=== PATIENT | male | born 1995 | race Hispanic/Latino ===

== ENCOUNTER 2018-03-04 18:07 | Emergency (ER) | payer MEDICAID, SELFPAY ==
[2018-03-04 18:49] LABS: #Basophils 0.1 thou/uL (0.0-0.2); #Eosinphils 0.3 thou/uL (0.0-0.7); #Lymphocytes 1.9 thou/uL (1.20-3.40); #Monocytes 1.2 thou/uL (0.11-0.59); #Neutrophils 11.6 thou/uL (1.40-6.50); %Basophils 0.5 % (0.0-1.0); %Eosinophils 1.8 % (0.0-10.0); %Lymphocytes 12.4 % (28.0-48.0); %Neutrophils 77.3 % (31.0-61.0); Hemoglobin 15.4 g/dL (14.0-18.0); Mean Corpuscular HGB CONC 34.7 g/dL (32.0-36.0); Mean Corpuscular Hemoglobin 30.7 pg (25.0-35.0); Mean Corpuscular Volume 88.3 fl (77.0-87.0); Mean Platelet Volume 9.4 fL (7.4-10.4); Platelet Count 163 thou/uL (130-400); Red Blood Cell (RBC) Count 5.01 mill/uL (4.00-5.20); White Blood Cell (WBC) Count 15.1 thou/uL (4.8-10.8)
[2018-03-04 19:04] LABS: ALT (SGPT) 22 U/L (8-55); AST (SGOT) 13 U/L (5-34); Albumin 4.6 g/dL (3.5-5.0); Alkaline Phosphatase 76 U/L (Less than 750); Anion Gap 14 mmol/L (10-20); BUN (Urea Nitrogen) 9 mg/dL (8.9-20.6); Calc. Creatinine Clearance 0 mL/min (70-130); Calcium 9.4 mg/dL (7.8-10.44); Carbon Dioxide 26 mmol/L (22-29); Chloride 100 mmol/L (98-107); Estimated GFR-MDRD Greater than 90; Globulin 3.2 g/dL (2.4-3.5); Glucose 97 mg/dL (70-105); Potassium 3.6 mmol/L (3.5-5.1); Protein, Total 7.8 g/dL (6.0-8.3); Sodium 136 mmol/L (136-145)
--- NOTE | 2018-03-04 19:56 | RAD ---
RIGHT FOOT THREE VIEWS: 03/04/2018 HISTORY: Right foot pain after injury on Monday at work. The foot is red, swollen, and warm to touch. Purul ent material draining between toe. FINDINGS: There is no evidence of a fracture, dislocation, or other osseous abnormality involving the right jeovanny t. IMPRESSION: No acute osseous abnormality right foot. POS: [facility]
[2018-03-04] MEDS ORDERED: Ketorolac Tromethamine 30 MG/ML VIAL ONE (20:07)
[2018-03-04] MEDS ORDERED: Ketoconazole 2% Cream 15 gm Tube TOP SCH (20:30)
== END 2018-03-04 21:25 | disposition home or self-care (01) ==
LOC: ERS 18:07
DX: B35.3 Tinea pedis (principal); L03.115 Cellulitis of right lower limb; F17.210 Nicotine dependence, cigarettes, uncomplicated
CPT/HCPCS: 36415; 80053; 83605; 85025; 87040; 87070; 87077; 87186; 87205; 96360; 96361; 96374; 96375; J0696; J1885

== ENCOUNTER 2018-06-18 00:42 | Inpatient (IN) | payer SELFPAY, OTHER ==
[2018-06-18 01:04] LABS: #Eosinphils 0.1 thou/uL (0.0-0.7); #Lymphocytes 1.2 thou/uL (1.20-3.40); #Monocytes 0.5 thou/uL (0.11-0.59); #Neutrophils 13.6 thou/uL (1.40-6.50); %Basophils 0.1 % (0.0-1.0); %Eosinophils 0.4 % (0.0-10.0); %Monocytes 3.3 % (0.0-4.0); %Neutrophils 88.2 % (31.0-61.0); Hemoglobin 16.7 g/dL (14.0-18.0); Mean Corpuscular HGB CONC 33.8 g/dL (32.0-36.0); Mean Corpuscular Hemoglobin 30.5 pg (25.0-35.0); Mean Corpuscular Volume 90.2 fL (78.0-98.0); Mean Platelet Volume 9.9 fL (7.4-10.4); Platelet Count 204 thou/uL (130-400); RBC Distribution Width 13.6 % (11.5-14.5); Red Blood Cell (RBC) Count 5.49 mill/uL (4.00-5.20); White Blood Cell (WBC) Count 15.4 thou/uL (4.8-10.8)
[2018-06-18 01:05] LABS: Bilirubin Negative (Negative); Blood, Urine Negative (Negative); Clarity CLEAR (Clear); Glucose, Urine (Dipstick) Negative (Negative); Leukocyte Negative (Negative); Nitrite Negative (Negative); Protein, Urine (Dipstick) Trace mg/dL (Neg-Trace); Specific Gravity, Urine 1.014 (1.002-1.036); Urobilinogen 0.2 mg/dL (0.2-1.0); pH, Urine 5.5 (5.0-9.0)
[2018-06-18] MEDS ORDERED: fentaNYL Citrate/PF 2,000 MCG in Sodium Chloride 0.9% 60 ML IV SCH ×2 (01:06→04:45)
[2018-06-18 01:18] LABS: ALT (SGPT) 28 U/L (8-55); AST (SGOT) 19 U/L (5-34); Acetaminophen Less than 6.0 mcg/mL (10.0-30.0); Albumin 4.8 g/dL (3.5-5.0); Alkaline Phosphatase 75 U/L (Less than 750); Anion Gap 20 mmol/L (10-20); BUN (Urea Nitrogen) 7 mg/dL (8.9-20.6); Bilirubin, Total 0.4 mg/dL (0.2-1.2); Calc. Creatinine Clearance 0 mL/min (70-130); Calcium 8.5 mg/dL (7.8-10.44); Carbon Dioxide 21 mmol/L (22-29); Chloride 100 mmol/L (98-107); Estimated GFR-MDRD Greater than 90; Globulin 3.3 g/dL (2.4-3.5); Glucose 182 mg/dL (70-105); Potassium 3.4 mmol/L (3.5-5.1); Protein, Total 8.1 g/dL (6.0-8.3); Salicylate Less than 8.0 mg/dL (15.0-30.0); Sodium 138 mmol/L (136-145)
[2018-06-18 01:23] LABS: CO2 Tension 52.7 mmHg (35.0-45.0); O2 Tension (PaO2) 99.4 mmHg (80.0-100.0); pH, Arterial 7.29 (7.35-7.45)
[2018-06-18 01:24] LABS: Analyzer IN Cardio ER; Base Excess (BEa) -2.3 mEq/L (-2.0 to +3.0); Hematocrit-ABG 47.7 % (34.0-44.0); Hemoglobin (Hb) 15.4 g/dL (11.4-15.4); Puncture Site LRA
[2018-06-18 01:25] LABS: ALV-art Gradient 117.925 (0-20)
[2018-06-18 01:26] LABS: Amphetamine Detected (NotDetected); Barbiturates Screen Not Detected (NotDetected); Benzodiazepine Screen Not Detected (NotDetected); Cocaine Metabolite Screen Detected (NotDetected); Medtox Control Line Valid? VALID (VALID); Medtox Reader # READER 4; Methadone Not Detected (NotDetected); Methamphetamine Not Detected (NotDetected); Opiate Screen Not Detected (NotDetected); Oxycodone Screen Not Detected (NotDetected); Phencyclidine (PCP) Not Detected (NotDetected); THC/Cannabinoid Screen Not Detected (NotDetected); Tricyclic Screen Not Detected (NotDetected)
[2018-06-18 01:29] LABS: Alcohol 460 mg/dL (Less than 10)
[2018-06-18] MEDS ORDERED: Pantoprazole 40 MG VIAL ONE (02:25)
[2018-06-18] MEDS ORDERED: Sodium Chloride 0.9% 1,000 ML IV SCH ×2 (02:57→23:45)
[2018-06-18] MEDS ORDERED: Ondansetron HCl/PF 4 MG/2 ML Vial IVP PRN (03:01)
[2018-06-18] MEDS ORDERED: Propofol 1,000 MG/100 ML VIAL IV ONE (03:27)
[2018-06-18 03:38] LABS: Hemoglobin 13.6 g/dL (14.0-18.0); Mean Corpuscular HGB CONC 34.1 g/dL (32.0-36.0); Mean Corpuscular Hemoglobin 30.7 pg (25.0-35.0); Mean Corpuscular Volume 89.8 fL (78.0-98.0); Mean Platelet Volume 9.6 fL (7.4-10.4); Platelet Count 163 thou/uL (130-400); RBC Distribution Width 13.4 % (11.5-14.5); Red Blood Cell (RBC) Count 4.44 mill/uL (4.00-5.20); White Blood Cell (WBC) Count 20.9 thou/uL (4.8-10.8)
[2018-06-18 03:44] VITALS: BMI 37.0
[2018-06-18 03:45] LABS: Anion Gap 16 mmol/L (10-20); BUN (Urea Nitrogen) 5 mg/dL (8.9-20.6); Calc. Creatinine Clearance 288 mL/min (70-130); Calcium 6.5 mg/dL (7.8-10.44); Carbon Dioxide 18 mmol/L (22-29); Chloride 111 mmol/L (98-107); Estimated GFR-MDRD Greater than 90; Glucose 137 mg/dL (70-105); Potassium 3.5 mmol/L (3.5-5.1); Sodium 141 mmol/L (136-145)
[2018-06-18 03:56] LABS: Band 23 % (5-11); Lymphocytes 9 % (28-48); MDiff Complete? YES; Monocytes 5 % (0-4); Neutrophil 63 % (31-61)
[2018-06-18] MEDS: Piperacillin/Tazobactam 3.375 GM in Sodium Chloride 0.9% 100 ML IVPB SCH ×4 (04:31→22:15)
[2018-06-18] MEDS ORDERED: Propofol BOLUS 1,000 MG/100 ML VIAL IV PRN (04:45)
[2018-06-18] MEDS ORDERED: Fentanyl BOLUS 250 ML IVPB PRN (04:45)
[2018-06-18] MEDS: Lorazepam 2 MG/ML VIAL SLOW IVP PRN ×3 (07:00→14:07)
--- NOTE | 2018-06-18 07:19 | PDOC.PULCN ---
Pulmonology Consult: HPI - Date of Consult Date: 06/18/18 Time: 07:00 - Consult Details Reason for Consult: Severe Alcohol in toxication, intubated Requesting Physician: angelique - History of Present Illness HPI: KHURRAM MONTOYA is a 22 year-old M who was dropped in the ER unconscious by some friends. Per chart review, they stated that he had been drinking heavily and lost consciousness and they became concerned. Per chart review he has no significant medical history and takes no medications at home. On presentation to the ED patient had a GCS of 3 and was intubated. Upon transport to the unit the patient was very aggravated and required 5 nurses to hold him down to keep him from pulling his ET tube. Now sedated with ET tube in place. Pulmonology Consult: ROS - Review of Systems ROS unobtainable: due to mental status Pulmonology Consult: PMH Source: other (chart) Past Medical History: none per chart - Social History Smoking Status: Unknown if ever smoked Alcohol Use: heavy Drug Use History: cocaine, amphetamines Pulmonology Consult: Meds - Medications MAR Reviewed: Yes Medications: Current Medications Enoxaparin Sodium (Lovenox) 40 mg SC 0900 ALONDRA Piperacillin Sod/Tazobactam (Sod 3.375 gm/ Sodium Chloride) 100 mls @ 200 mls/ hr IVPB 0400,1000,1600,2200 ALONDRA Last Admin: 06/18/18 04:31 Dose: 100 mls Fentanyl Citrate 2,000 mcg/ (Sodium Chloride) 100 mls @ 0 mls/hr IV INF ALONDRA; Per Protocol PRN Reason: Protocol Stop: 07/18/18 04:45 Fentanyl Citrate (Fentanyl Bolus) 250 mls @ 0 mls/hr IVPB PRN PRN; As Directed PRN Reason: Breakthrough pain/agitation Stop: 07/18/18 04:45 Sodium Chloride (Normal Saline 0.9%) 1,000 mls @ 125 mls/hr IV .Q8H ALONDRA Lorazepam (Ativan) 2 mg SLOW IVP Q1H PRN PRN Reason: Breakthrough agitation Stop: 07/18/18 04:45 Morphine Sulfate (Morphine Sulfate) 2 mg SLOW IVP Q1H PRN PRN Reason: BREAKTHROUGH PAIN/AGITATION Stop: 07/18/18 04:45 Ondansetron HCl (Zofran) 4 mg IVP Q6H PRN PRN Reason: Nausea/Vomiting Propofol (Diprivan) 1,000 mg IV INF PRN; Protocol PRN Reason: TO ACHIEVE GOAL RASS Stop: 07/18/18 04:45 Propofol (Diprivan Bolus) 20 mg IV Q5MIN PRN PRN Reason: BREAKTHROUGH AGITATION Stop: 07/18/18 04:45 - Allergies Allergies/Adverse Reactions: Allergies Allergy/AdvReac Type Severity Reaction Status Date / Time No Known Allergies Allergy Verified 06/18/18 03:51 Pulmonology Consult: PE - Physical Exam Constitutional: NAD HEENT: moist MMs Cardiovascular: RRR, no significant murmur Respiratory: clear to auscultation anteriorly. negative: respiratory distress Gastrointestinal: soft, non-tender, no distention, positive bowel sounds Musculoskeletal: no edema, pulses present Skin: cap refill <2 seconds Pulmonology Consult: Results - Labs Result Diagrams: 06/18/18 03:13 06/18/18 03:13 - ABG Interpretation Attestation: I reviewed and interpreted this ABG. ABG Results: ABG pH 7.29 (7.35-7.45) L 06/18/18 01:13 ABG pCO2 52.7 mmHg (35.0-45.0) H 06/18/18 01:13 ABG O2 Sat Calc/Elizabeth 97.0 % (94.0-98.0) 06/18/18 01:13 ABG Base Excess -2.3 mEq/L (-2.0 to +3.0) L 06/18/18 01:13 Interpretation: metabolic acidosis Pulmonology Consult: A/P - Problem (1) Alcohol intoxication Current Visit: Yes Status: Acute (2) Polysubstance abuse Current Visit: Yes Code(s): F19.10 - OTHER PSYCHOACTIVE SUBSTANCE ABUSE, UNCOMPLICATED Status: Acute (3) Acute respiratory failure with hypoxia and hypercarbia Current Visit: Yes Code(s): J96.01 - ACUTE RESPIRATORY FAILURE WITH HYPOXIA; J96.02 - ACUTE RESPIRATORY FAILURE WITH HYPERCAPNIA Status: Acute (4) Metabolic acidosis Current Visit: Yes Code(s): E87.2 - ACIDOSIS Status: Acute - Time Time: 50% of the time was spent in coordination of care (as documented) at patient's floor/unit and/or counseling patient. Time with Patient: greater than 50 minutes - Plan Plan: This is a critically ill 22 yo M admitted for severe alcohol intoxication and substance abuse with inability to protect airway. This is a critically ill 54 yo male s/p valve replacement on 06/12 and pulmonary hematoma evacuation on 06/13. He developed shock liver after the procedures which is resolving. He is being treated for endocarditis after perforations at coronary cuff were discovered. He is off pacer and all chest tubes out since 06/16. Consults: pulm FOREIGN EXCHANGE CLERK (alcohol abuse) - ETOH level 460 at 0100 06/18, UDS + for cocaine, amphetamin es - difficult sedation - propofol 40 mcg/kg/min, s/p 100ml bolus - fentanyl in ED - Ativan 2mg x1 Resp (acute hypoxic resp failure) - extubated 06/15 - satting 95% on 2L this AM CV (valve replacement, endocarditis) - off pressors maintaining adequate BPs - unable to obtain EF from echo 06/13, prior 15-20% - all chest tubes out since 06/16 GI (shock liver) - AST 374, ALT 1262 from both >3500 after surgery Nutrition - advancing diet Hematologic (shock liver vs DIC, anemia, thrombocytopenia) - plt trough 40, now trending up, 48 today - total blood products this stay: PRBC 11, plt 4, 11 FFP, 2 cryoprecipate - hgb 8.8 /Renal (JASMINA, fluid overload) - +700ml fluid balance yesterday - Cr up, 1.71-> 2.84 -> 3.06 -> 2.43 -> 1.90 -> 1.43 - suspect intravascular volume depletion 2/2 shock liver vs DIC - monitor I/Os - -271 ml I/O yesterday, metolazone & spironolactone Infection (Endocarditis, GBS bacteremia) - Continue vanc/Rocephin for 2 weeks post valve replacement (06/12) - Likely will need Picc prior to d/c - BC negative x4, valve growing staph hominus suspected contaminant per ID Endo (T2DM) - SSI - restart metformin today as JASMINA resolving Tubes: ronak Code status: full PPx: heparin Diet: heart healthy Dispo: anticipate transfer to floor today, will need rehab placement
[2018-06-18 07:45] LABS: Actual Bicarbonate (HCO3a) 19.7 mEq/L (22-28); CO2 Tension 35.5 mmHg (35.0-45.0); Hemoglobin (Hb) 13.3 g/dL (11.4-15.4); O2 Tension (PaO2) 147.4 mmHg (80.0-100.0); pH, Arterial 7.36 (7.35-7.45)
[2018-06-18] MEDS: Sodium Chloride 0.9% 1,000 ML IV SCH ×2 (07:45→14:09)
[2018-06-18] MEDS ORDERED: CCU Electrolyte Replacement 1 EACH FS ONE (07:45)
[2018-06-18 07:46] LABS: ALV-art Gradient 93.425 (0-20); Puncture Site RBRACH
[2018-06-18] MEDS: Propofol 1,000 MG/100 ML VIAL IV PRN ×3 (07:46→14:08)
[2018-06-18] MEDS ORDERED: Potassium Phosphate 9 MMOL in Sodium Chloride 0.9% 100 ML IVPB PRN (08:00)
[2018-06-18] MEDS ORDERED: Potassium Phosphate 15 MMOL in Sodium Chloride 0.9% 250 ML 250 ML IV PRN (08:00)
[2018-06-18] MEDS ORDERED: Magnesium Oxide 400 MG TAB PO PRN ×2 (08:00)
[2018-06-18] MEDS ORDERED: Potassium Chloride 40 MEQ in Premix Bag 1 BAG IVPB PRN (08:00)
[2018-06-18] MEDS ORDERED: Potassium Chloride 40 MEQ in Sodium Chloride 0.9% 250 ML 250 ML IVPB PRN (08:00)
[2018-06-18] MEDS ORDERED: CCU ELECTROLYTE REPLACEMENT PROTOCOL FS PRN (08:00)
[2018-06-18] MEDS ORDERED: Potassium Phosphate 12 MMOL in Sodium Chloride 0.9% 250 ML 250 ML IV PRN (08:00)
[2018-06-18] MEDS ORDERED: Potassium Chloride 20 MEQ TAB PO PRN (08:00)
[2018-06-18] MEDS ORDERED: Magnesium 2 GM/NS 0.9% 100 ML 2 GM in Premix Bag 1 BAG IVPB PRN (08:00)
[2018-06-18] MEDS: Multivitamins, Adult 10 ML, Folic Acid 1 MG, Thiamine HCl 100 MG in Dextrose 5 %-0.45 %... IV SCH (08:17)
--- NOTE | 2018-06-18 08:28 | CT ---
CT HEAD NONCONTRAST: Comparison: None. Indication: Altered mental status. FINDINGS: Ventricular system is normal in size. There is a kiesha cisterna magna, normal anatomic variant. No acu te intracranial hemorrhage, mass effect, or midline shift. There is scattered paranasal sinus mucosal thickening as well as opacification of the imaged nasal passageway. IMPRESSION: No acute intracranial hemorrhage or mass effect. POS: [facility]
[2018-06-18] MEDS: Enoxaparin Sodium 40 MG/0.4 ML SYRINGE SC SCH (08:31)
[2018-06-18] MEDS: Pantoprazole 40 MG VIAL IVP SCH (08:31)
--- NOTE | 2018-06-18 08:39 | CON ---
DATE OF CONSULTATION: 06/18/2018 REASON FOR CONSULTATION: Critical care management. HISTORY OF PRESENT ILLNESS: This is a 22-year-old male, who presented intoxicated, abusive, and also high on drugs. The patient was intubated, I believe, more or less as a restraint measure and has be en left on mechanical ventilation. PAST MEDICAL HISTORY: Negative. PAST SURGICAL HISTORY: None. PSYCHIATRIC HISTORY: None. SOCIAL HISTORY: Drinks socially; smokes cigarettes daily, approximately 1-1/2 packs; was positive fo r amphetamines and cocaine as drug screen. ALLERGIES: None. MEDICATIONS: None. REVIEW OF SYSTEMS: Unobtainable, as the patient is on mechanical ventilation. PHYSICAL EXAMINATION: VITAL SIGNS: Temperature 98.1, pulse 100, blood pressure 105/50. A 24-hour intake, I's and O's are not completely measured yet. HEENT EXAM: Pupils 5 mm and reactive. Sclerae are anicteric. Oropharynx clear except for endotrach eal tube in place. Lips slightly swollen. NECK: No adenopathy, JVD, or bruits. LUNGS: Clear without wheezing or rhonchi. CARDIAC: S1 and S2, slightly tachycardic without murmur. ABDOMEN: Soft, nontender, nondistended. EXTREMITIES: No clubbing, cyanosis, or edema. GENITOURINARY EXAM: Normal. LABORATORY AND X-RAY FINDINGS: White blood cell count 20.9, hematocrit 39.9, platelet count 163, pH 7.29, pCO2 of 52, pO2 of 99. His original blood gas, when he came in , tidal volume 550, PEEP 5 , pressure support 10, FiO2 40%. Sodium 141, potassium 3.5, chloride 106, CO2 of 18, BUN 5, creatini ne 0.6, glucose 137, calcium 6.5. Urinalysis essentially negative. Drug screen positive for ampheta mines and cocaine. Alcohol level 460. Chest x-ray normal heart size, diaphragms clear. Endotrachea l tube, 3.5 cm above the maren. ASSESSMENT: 1. Alcohol and drug intoxication. 2. Acute respiratory failure, requiring mechanical ventilation. PLAN: We would trend his alcohol level, possibly extubate this afternoon. Monitor electrolytes. Re check blood gas. We would consider stopping antibiotics.
--- NOTE | 2018-06-18 09:07 | RAD ---
PORTABLE AP CHEST: Date: 06/18/18 HISTORY: Altered mental status, intoxicated, unresponsive. FINDINGS: Endotracheal tube is noted in place with tip overlying T2 vertebral body. Nasogastric tube is noted i n place, with tip overlying the body of the stomach, but the most proximal side hole overlies the reg ion of the GE junction and the nasogastric tube should be mildly advanced. Cardiac silhouette and bro nchovascular markings are accentuated by the shallow depth of inspiration and portable technique. Cherie gs are otherwise clear. IMPRESSION: 1. Nasogastric tube noted in place with most proximal side hole overlying the expected location of t he GE junction. Nasogastric tube should be mildly advanced. 2. Endotracheal tube in place. POS: [facility]
[2018-06-18] MEDS: Acetaminophen 500 MG TAB PO PRN ×2 (11:30→18:21)
--- NOTE | 2018-06-18 11:35 | HP ---
PRIMARY CARE PHYSICIAN: None. CODE STATUS: FULL CODE. TIME OF EVALUATION: 3:00 a.m. CHIEF COMPLAINT: Found unresponsive. HISTORY OF PRESENT ILLNESS: Information was gathered from family and ER staff, last time the patient was in normal was yesterday in a alliance party with friends. As per the family member, it looks like the deidre mercado was having some alcohol in the alliance party. The family said that they went to pick him up and then b rought him into the hospital. The patient was unresponsive, no waking up, likely triggers due to alc ohol intoxication, no alleviating factors. The symptoms are severe, patient was intubated, he was go tten some large amount of liquid from the NG tube, patient was also positive for cocaine, methampheta mines and alcohol. Initially was hypothermic, here temperature has improved from the new warming micheline nket, blood pressures remain on the low side, we given aggressive hydration. REVIEW OF SYSTEMS: Unable to obtain. The patient is sedated and intubated. PAST SURGICAL HISTORY: No surgical history. PSYCHIATRIC HISTORY: No psych history. SOCIAL HISTORY: The patient drinks socially. As per family member, no history of drug use or cigare ttes. KNOWN ALLERGIES: No known drug allergies. PHYSICAL EXAMINATION: VITAL SIGNS: Blood pressure 136/81 with heart rate 117, respiratory rate was 10, temperature 96.3. The patient has received resuscitation. Blood pressure has remained on the low side. GENERAL APPEARANCE: The patient is intubated. HEENT: Eyes: Normal conjunctiva. Moist oral mucosa. Anicteric. NECK: No JVD. RESPIRATORY: Bilateral air entry. No rales, no wheezing. Symmetric expansion. CARDIOVASCULAR: Normal rate, regular rhythm. No murmurs, no gallop, no edema. ABDOMEN: Soft, normal bowel sounds. MUSCULOSKELETAL: Baseline range of motion and strength. No tenderness. SKIN: Warm and intact. No pallor, no rash, no redness. NEUROLOGIC: Unable to explore, patient is intoxicated and intubated. PSYCHIATRIC: Unable to explore. LABORATORY DATA: EKG was done. The patient has sinus tachycardia with a ventricular rate of 116, [place] 174, QRS 102, QT corrected 458. Chest x-ray, head CT was negative for acute changes. Chest: ET tu be in good position . OG tube in place. LABORATORY DATA: Reviewed. The patient has white count of 15, hemoglobin 16. Blood gas showed a pH of 7.29 with a pCO2 of 52 and pO2 of 99 that was done on SIMV at the rate of 14, inspired oxygen 40, tidal volume 550, pressure support of 10, PEEP of 5. Chemistry: Sodium 138, potassium 3.4, chlorid e 100, carbon dioxide 21, anion gap 20, BUN 7, creatinine 0.8, glucose 182. LFTs were negative. Uri ne was negative. Plasma alcohol 460, cocaine was detected, amphetamine was detected. Acetaminophen was negative. Salicylates were negative was negative. ASSESSMENT AND PLAN: The patient will be placed in the hospital with the following medical problems. Critical care time, more than 35 minutes spent at bedside assessment, family meeting, record review a nd elaboration and coordination of care. 1. Acute hypercapnic respiratory failure with respiratory acidosis that is acute, the patient was in tubated, we will continue on the vent overnight, we will monitor. We will adjust treatment as needed . 2. Hypothermia and hypotension on presentation, likely secondary to intoxication. We will continue the warm blankets and also continue the hydration, patient might be on the dry side secondary to diur esis from alcohol and possible other drugs. Also, we will cover him with antibiotics given the fact that the patient was unconscious or not responsive for quite some time might have been aspirated. 3. Drug overdose including ethanol, cocaine, methamphetamines, the patient receive supportive care, will be monitored in the ICU, we will treat accordingly. 4. Deep venous thrombosis prophylaxis. 5. Leukocytosis. White count of 15.4 likely secondary to acute physical distress, given possibility for aspiration the patient is covered with antibiotics, especially because we do not know how long t he patient was in that condition. .
[2018-06-18] MEDS ORDERED: DC Sedation Protocol FS ONE (15:09)
[2018-06-19] MEDS: Piperacillin/Tazobactam 3.375 GM in Sodium Chloride 0.9% 100 ML IVPB SCH ×2 (04:16→09:29)
[2018-06-19 04:27] LABS: #Eosinphils 0.4 thou/uL (0.0-0.7); #Lymphocytes 2.7 thou/uL (1.20-3.40); #Monocytes 1.1 thou/uL (0.11-0.59); #Neutrophils 11.5 thou/uL (1.40-6.50); %Basophils 0.3 % (0.0-1.0); %Eosinophils 2.2 % (0.0-10.0); %Monocytes 6.9 % (0.0-4.0); %Neutrophils 73.5 % (31.0-61.0); Hemoglobin 13.1 g/dL (14.0-18.0); Mean Corpuscular HGB CONC 33.7 g/dL (32.0-36.0); Mean Corpuscular Hemoglobin 30.6 pg (25.0-35.0); Mean Corpuscular Volume 90.8 fL (78.0-98.0); Mean Platelet Volume 9.8 fL (7.4-10.4); Platelet Count 138 thou/uL (130-400); RBC Distribution Width 13.3 % (11.5-14.5); Red Blood Cell (RBC) Count 4.29 mill/uL (4.00-5.20); White Blood Cell (WBC) Count 15.6 thou/uL (4.8-10.8)
[2018-06-19 06:34] LABS: Anion Gap 14 mmol/L (10-20); BUN (Urea Nitrogen) 6 mg/dL (8.9-20.6); Calc. Creatinine Clearance 266 mL/min (70-130); Calcium 8.4 mg/dL (7.8-10.44); Carbon Dioxide 21 mmol/L (22-29); Chloride 104 mmol/L (98-107); Estimated GFR-MDRD Greater than 90; Glucose 97 mg/dL (70-105); Potassium 3.6 mmol/L (3.5-5.1); Sodium 135 mmol/L (136-145)
[2018-06-19] MEDS: Enoxaparin Sodium 40 MG/0.4 ML SYRINGE SC SCH (08:21)
[2018-06-19] MEDS: Pantoprazole 40 MG VIAL IVP SCH (08:21)
--- NOTE | 2018-06-19 09:09 | PRG ---
DATE OF SERVICE: 06/19/2018 SUBJECTIVE: The patient is very standoffish. His parents are in the room. PHYSICAL EXAMINATION: VITAL SIGNS: His temperature is 99, pulse 97, O2 sat 97%, blood pressure 173/101. HEENT: Unremarkable. NECK: No JVD. LUNGS: Clear. CARDIAC: S1 and S2 regular. ABDOMEN: Soft. EXTREMITIES: No edema. LABORATORY DATA: White blood cell count 15.6, hematocrit 39, platelet count 138. Sodium 135, potass ium 3.6, chloride 104, CO2 21, BUN 6, creatinine 0.7, glucose 97. ASSESSMENT: 1. Status post alcohol poisoning. 2. Status post respiratory failure. 3. Likely some component of aspiration. RECOMMENDATION: I would send him home on a total of 7 days of Augmentin. He is probably clear to go home today. He was offered help, but does not appear to want such in terms of substance abuse. I w ould recommend case management intervention prior to discharge. No further pulmonary recommendations . Please recall if further assistance needed.
[2018-06-19] MEDS: Multivitamins, Adult 10 ML, Folic Acid 1 MG, Thiamine HCl 100 MG in Dextrose 5 %-0.45 %... IV SCH (10:10)
--- NOTE | 2018-06-19 11:59 | DIS ---
DATE OF ADMISSION: 06/18/2018 DATE OF DISCHARGE: 06/19/2018 PRIMARY CARE PHYSICIAN: None. DISCHARGE DIAGNOSES: 1. Unintentional overdose. 2. Polysubstance abuse with alcohol, cocaine, and amphetamine. 3. Metabolic encephalopathy, present on admission, now resolved. CONSULTATIONS: None. PROCEDURES: None. HISTORY AND PHYSICAL: Mr. Das is a 22-year-old male, who was brought by friends and dumped to [facility] ER after being found with a snoring-type breathing. Workup in the ER showed alcohol level of 460. Urine drug screen was positive for cocaine and ampheta mine as well. He was admitted to the ICU overnight where he was allowed to detox. He had no intentional overdose a nd no suicidal or homicidal ideation. He was transferred to the floor in the evening, and subsequent ly, today was back to his normal mental status and was discharged home in stable condition. PHYSICAL EXAMINATION: The patient was seen and examined on the day of discharge. Discharge plan and disposition was discussed with the patient [id number] at the bedside. DISCHARGE MEDICATIONS: None. FOLLOWUP APPOINTMENTS: The patient was encouraged to follow up with PCP. DISCHARGE DIET: No restrictions, regular diet. DISCHARGE ACTIVITY: As tolerated. DISCHARGE CONDITION: Stable. DISPOSITION: Discharged home via private vehicle. The patient was counseled to abstain from drinkin g and using cocaine and amphetamine.
[2018-06-19 13:59] VITALS: BP 154/98; TEMP 98.9
== END 2018-06-19 13:57 | disposition home or self-care (01) | DRG 917 ==
LOC: ERS 00:42 → CCU 02:21 → T4-A 18:01
PROVIDERS: ADMIT Hospitalist; ATTEND Hospitalist
PROC: 0BH17EZ Insertion of Endotracheal Airway into Trachea, Via Natural or Artificial Opening (ICD-10-PCS; principal; 2018-06-18)
PROC: 5A1935Z Respiratory Ventilation, Less than 24 Consecutive Hours (ICD-10-PCS; 2018-06-18)
DX: T51.0X1A Toxic effect of ethanol, accidental (unintentional), initial encounter (principal); J96.02 Acute respiratory failure with hypercapnia; G93.41 Metabolic encephalopathy; R68.0 Hypothermia, not associated with low environmental temperature; I95.9 Hypotension, unspecified; T40.5X1A Poisoning by cocaine, accidental (unintentional), initial encounter; T43.621A Poisoning by amphetamines, accidental (unintentional), initial encounter; D72.829 Elevated white blood cell count, unspecified; F10.10 Alcohol abuse, uncomplicated; F14.10 Cocaine abuse, uncomplicated; F15.10 Other stimulant abuse, uncomplicated
CPT/HCPCS: 36415; 70450; 71045; 80048; 80053; 80306; 80307; 81003; 82805; 84100; 85025; 87040; 87086; 93005; 93010; 94002; C9113; J1650; J2060; J2405; J2543; J2704; J3010; J3411; J3480; J7042; J7050

== ENCOUNTER 2023-12-11 07:56 | Emergency (ER) | payer BC ==
[2023-12-11 09:51] LABS: SARS-CoV-2 NAA Rapid Test Not Detected (NotDetected)
== END 2023-12-11 09:43 | disposition home or self-care (01) ==
LOC: ERS 07:56
DX: J06.9 Acute upper respiratory infection, unspecified (principal); I10 Essential (primary) hypertension; E11.9 Type 2 diabetes mellitus without complications; F17.290 Nicotine dependence, other tobacco product, uncomplicated; F17.210 Nicotine dependence, cigarettes, uncomplicated
CPT/HCPCS: 71045; 87081; 87430